=== PATIENT | female | born 1970 | race Caucasian/White ===

== ENCOUNTER 2018-04-09 13:58 | Emergency (ER) | payer BC ==
[2018-04-09] MEDS ORDERED: LIDOCAINE HCL 1% MPF 30 SOL ONE (15:22)
[2018-04-09] MEDS ORDERED: ACETAMI/HYDROCO 325/10 TAB PO ONE (15:41)
[2018-04-09] MEDS ORDERED: APAP/HYDROCODONE 1 EACH TABLET ONE (15:48)
[2018-04-09] MEDS ORDERED: TDAP VACCINE 0.5 ML SUS IM ONE ×2 (16:02→16:16)
[2018-04-09] MEDS ORDERED: LIDOCAINE HCL 1% MPF 30 SOL INFIL ONE (16:27)
[2018-04-09 20:15] VITALS: RESP 16
[2018-04-09 20:16] VITALS: BP 129/73; PULSE 69; TEMP 98; O2SAT 99
== END 2018-04-09 17:06 | disposition home or self-care (01) ==
LOC: ED 13:58
DX: S00.83XA Contusion of other part of head, initial encounter (principal); S01.81XA Laceration without foreign body of other part of head, initial encounter; S06.0X9A Concussion with loss of consciousness of unspecified duration, initial encounter; R40.2362 Coma scale, best motor response, obeys commands, at arrival to emergency department; R40.2142 Coma scale, eyes open, spontaneous, at arrival to emergency department; R40.2252 Coma scale, best verbal response, oriented, at arrival to emergency department; S79.811A Other specified injuries of right hip, initial encounter; V80.010A Animal-rider injured by fall from or being thrown from horse in noncollision accident, initial encounter
CPT/HCPCS: 12011; 70450; 73501; 90471; 90715; 99284; 99285; G0390; A6402; A9270-GY; J2001